=== PATIENT | male | born 1985 | race Caucasian/White ===

== ENCOUNTER → 2016-08-05 | Outpatient (CLI) | payer OTHER ==
[~2016-08-05] MED LIST: 1ST CHOICE LAN1 EACH MC; AMBIEN 5 MG TABL5 M1 PO; BACTRIM DS TAB1 EACH PO; DEPAKOTE 250MG250 M1 PO; DOXYCYCLINE 10100 MG PO; EASY TOUCH MC; GEODON80 MG PO; GLUCOSE TEST S1 EACH IN; LEVEMIR SUBQ; NOVOLOG100 UNIT/1 SUBQ; PAXIL CR37.5 MG PO; VENTOLIN HFA 1818 GM INH
[2016-08-05 10:34] LABS: CREATININE 1.4 mg/dL (0.6-1.3)
== END ==
LOC: CAT 07-29 10:19
DX: K86.1 Other chronic pancreatitis (principal); E11.9 Type 2 diabetes mellitus without complications

== ENCOUNTER 2019-08-10 12:49 | Emergency (ER) | payer OTHER ==
[~2019-08-10] VITALS: Ht 172.7 cm; Wt 136.1 kg
[2019-08-10] MEDS ORDERED: VISTARIL50 MG PO (12:58)
[2019-08-10] MEDS ORDERED: VICTOZA0.6 MG/0.1 SUBQ (12:58)
[2019-08-10] MEDS ORDERED: MOBIC7.5 MG PO (14:46)
[2019-08-10] MEDS ORDERED: NORCO 5-325 TA1 EAC1 PO (14:46)
[2019-08-10 15:06] VITALS: BP 148/74
== END 2019-08-10 15:07 | disposition home or self-care (01) ==
LOC: ER 12:49
DX: M25.562 Pain in left knee (principal); M25.561 Pain in right knee; E11.9 Type 2 diabetes mellitus without complications; K21.9 Gastro-esophageal reflux disease without esophagitis; F20.9 Schizophrenia, unspecified; J45.909 Unspecified asthma, uncomplicated

== ENCOUNTER 2019-08-23 23:40 | Emergency (ER) | payer OTHER ==
[~2019-08-23] VITALS: Ht 172.7 cm; Wt 136.1 kg
[~2019-08-23 23:40] MED LIST changes: +MOBIC7.5 MG PO; +NORCO 5-325 TA1 EAC1 PO; +VICTOZA0.6 MG/0.1 SUBQ; +VISTARIL50 MG PO
[2019-08-24 00:41] LABS: URINE BILIRUBIN NEGATIVE (Negative); URINE BLOOD TRACE (Negative); URINE CLARITY CLEAR; URINE COLOR YELLOW; URINE GLUCOSE-RANDOM* 3+ (Negative); URINE KETONES 1+ (Negative); URINE LEUKOCYTES-REFLEX NEGATIVE (Negative); URINE NITRITE-REFLEX NEGATIVE (Negative); URINE PROTEIN (DIPSTICK) NEGATIVE (Negative); URINE UROBILINOGEN 0.2 E.U./dl (0.2-1.0)
[2019-08-24 00:52] LABS: ABSOLUTE NEUTROPHILS 5.2 thou/uL (1.4-8.2); BASOPHILS 0.8 % (0.0-2.0); EOSINOPHILS 1.3 % (0.0-3.0); HEMATOCRIT 44.4 % (42.0-52.0); HEMOGLOBIN 15.4 gm/dL (14.0-18.0); LYMPHOCYTES 39.2 % (24.0-44.0); MCH 30.4 pg (26.0-34.0); MCHC 34.8 g/dL (28.0-37.0); MCV 87.4 fL (80.0-100.0); MONOCYTES 6.5 % (1.0-8.0); PLATELET COUNT 153 thou/uL (150-400); POLYS 52.2 % (36.0-66.0); RBC 5.08 mil/uL (4.50-6.00); RDW 12.8 % (10.5-14.5)
[2019-08-24 00:57] LABS: ANION GAP 12 mmol/L (7-16); BUN 18 mg/dL (7-18); CALCIUM 8.6 mg/dL (8.5-10.1); CHLORIDE 99 mmol/L (98-107); CO2 21 mmol/L (21-32); CREATININE 1.4 mg/dL (0.7-1.3); GLUCOSE 411 mg/dL (74-106); SODIUM 132 mmol/L (136-145)
[2019-08-24 01:03] LABS: ALBUMIN 3.7 g/dL (3.4-5.0); DIRECT BILIRUBIN < 0.1 mg/dL (<0.1-0.2); LIPASE 290 U/L (73-393); SGOT 39 U/L (15-37); SGPT 112 U/L (30-65); TOTAL BILIRUBIN 0.6 mg/dL (<0.1-1.0); TOTAL PROTEIN 7.2 g/dL (6.4-8.2)
[2019-08-24 02:33] VITALS: BP 137/77
== END 2019-08-24 02:35 | disposition home or self-care (01) ==
LOC: ER 23:40
PROVIDERS: Emergency Medicine
DX: E11.65 Type 2 diabetes mellitus with hyperglycemia (principal); J45.909 Unspecified asthma, uncomplicated; K21.9 Gastro-esophageal reflux disease without esophagitis; F20.9 Schizophrenia, unspecified; Z88.0 Allergy status to penicillin; Z88.2 Allergy status to sulfonamides